=== PATIENT | female | born 1965 | race Caucasian/White ===

== ENCOUNTER 2016-07-27 08:42 | Emergency (ER) | payer BC ==
[2016-07-27 08:56] VITALS: BP 121/83
--- NOTE | 2016-07-27 09:55 | UC ---
FLU HPI - HPI Summary HPI Summary: The patient comes in today for: 1. Sore throat, pain behind the eyes, and "achey" all over: Onset: 4 days ago. Palliative/provocative: Nothing makes her symptoms better or worse. Quality: Pressure of the posterior pharynx. Region: Pharynx. Severity: 0/10 Time: Constant. Associated symptoms: Fevers: None. Rhinitis: None. Cough: None. Flu vaccine: None. * - History of Current Complaint Chief Complaint: UCRespiratory Stated Complaint: SORE THROAT Hx Obtained From: Patient Hx Last Menstrual Period: 8 years ago. ?: No - Allergy/Home Medications Allergies/Adverse Reactions: Allergies Allergy/AdvReac Type Severity Reaction Status Date / Time No Known Allergies Allergy Verified 07/27/16 08:51 Home Medications: Home Medications [id number] [Daytime/Nite Time Cold/Fl] 1 javier PO BID PRN 04/02 [History Confirmed 07/27/16] PMH/Surg Hx/FS Hx/Imm Hx Previously Healthy: Yes Endocrine History Of: Denies: Diabetes, Thyroid Disease, Hyperthyroidism, Hypothyroidism, Dyslipidemia Cardiovascular History Of: Denies: Cardiac Disorders, Hypertension, Pacemaker/ICD, Myocardial Infarction , Congestive Heart Failure, Atrial Fibrillation, Deep Vein Thrombosis, Bleeding Disorders Respiratory History Of: Denies: COPD, Asthma, Bronchitis, Pneumonia, Pulmonary Embolism GI/ History Of: Denies: Gastroesophageal Reflux, Ulcer, Gastrointestinal Bleed, Gall Bladder Disease, Kidney Stones, Diverticulitis, Renal Disease, Urosepsis Neurological History Of: Denies: TIA, CVA, Dementia, Seizures, Migraine Psychological History Of: Denies: Anxiety, Depression, Bipolar Disorder, Schizophrenia, Post Traumatic Stress Disorder Cancer History Of: Denies: Lung Cancer, Colorectal Cancer, Breast Cancer, Prostate Cancer, Cervical Cancer Other History Of: Negative For: HIV, Hepatitis B, Hepatitis C, Anticoagulant Therapy - Surgical History Surgical History: Yes Surgery Procedure, Year, and Place: ablation. L kidney donation- 2014 - Family History Known Family History: Positive: Cardiac Disease Negative: Hypertension, Diabetes - Social History Occupation: Employed Full-time Alcohol Use: Occasionally Substance Use Type: None Smoking Status (MU): Former Smoker When Did the Patient Quit Smoking/Using Tobacco: 25 years ago - Immunization History Most Recent Influenza Vaccination: not this season Review of Systems Constitutional: Negative Skin: Negative Eyes: Negative ENT: Sore Throat Respiratory: Cough Cardiovascular: Negative Gastrointestinal: Negative Genitourinary: Negative All Other Systems Reviewed And Are Negative: Yes Physical Exam Triage Information Reviewed: Yes Appearance: Well-Appearing, No Pain Distress, Well-Nourished Vital Signs: Initial Vital Signs Temp 98.8 F 07/27/16 08:51 Pulse 72 07/27/16 08:51 Resp 14 07/27/16 08:51 BP 121/83 07/27/16 08:51 Pulse Ox 99 07/27/16 08:51 Vital Signs Reviewed: Yes Eyes: Positive: Conjunctiva Clear. Negative: Discharge ENT: Positive: Hearing grossly normal, Pharynx normal. Negative: Pharyngeal erythema, Nasal congestion, Nasal drainage, TM bulging, TM dull, TM red, Tonsillar swelling, Tonsillar exudate Dental: Negative: Gross Decay/Caries @, Dental Fracture @ Neck: Positive: Supple, Nontender, No Lymphadenopathy. Negative: Nuchal Rigidity Respiratory: Positive: Lungs clear, No respiratory distress, No accessory muscle use. Negative: Crackles, Wheezing Cardiovascular: Positive: RRR, No Murmur Abdomen Description: Positive: Nontender, No Organomegaly, Soft. Negative: Distended, Guarding Musculoskeletal: Positive: Strength Intact, ROM Intact Neurological: Positive: Alert Psychological: Positive: Age Appropriate Behavior, Consolable Skin: Negative: rashes, breakdown Flu Course/Dx - Differential Dx/Diagnosis Differential Diagnosis/HQI/PQRI: Influenza Provider Diagnoses: Influenza A Discharge - Discharge Plan Condition: Stable Disposition: HOME Patient Education Materials: Influenza (ED) Forms: *Work Release Referrals: Non Staff,Doctor [Primary Care Provider] - 1 Week (Please see your primary care provider in about a week. If you don't have a primary care provider, please reference the included sheet of local provider. If you get worse, please be seen sooner.)
== END 2016-07-27 10:10 | disposition home or self-care (01) ==
LOC: UCCORT 08:42
DX: J09.X2 Influenza due to identified novel influenza A virus with other respiratory manifestations (principal); Z90.5 Acquired absence of kidney; Z87.891 Personal history of nicotine dependence
CPT/HCPCS: 87502; 99211; G0463

== ENCOUNTER 2017-06-29 11:25 | Emergency (ER) | payer BC ==
[2017-06-29 12:53] VITALS: BP 120/84
--- NOTE | 2017-06-29 13:01 | UC ---
Respiratory Complaint HPI - HPI Summary HPI Summary: Patient treated for bronchitis and sinus congestion for the past three weeks without improvement. - History of Current Complaint Chief Complaint: UCRespiratory Stated Complaint: COUGH Time Seen by Provider: 06/29/17 12:56 Hx Obtained From: Patient Hx Last Menstrual Period: 8 years ago. ?: No Onset/Duration: Sudden Onset, Lasting Weeks Timing: Constant Severity Initially: Mild Severity Currently: Moderate Character: Cough: Nonproductive Aggravating Factors: Exertion, Deep Breaths, Recumbent Position Alleviating Factors: Nothing Associated Signs And Symptoms: Positive: Dyspnea, Wheezing, URI, Nasal Congestion, Sinus Discomfort - Allergies/Home Medications Allergies/Adverse Reactions: Allergies Allergy/AdvReac Type Severity Reaction Status Date / Time No Known Allergies Allergy Verified 06/29/17 12:53 PMH/Surg Hx/FS Hx/Imm Hx Previously Healthy: Yes Other History Of: Negative For: HIV, Hepatitis B, Hepatitis C, Anticoagulant Therapy - Surgical History Surgical History: Yes Surgery Procedure, Year, and Place: ablation. L kidney donation- 2014 - Family History Known Family History: Positive: Cardiac Disease Negative: Hypertension, Diabetes - Social History Alcohol Use: Occasionally Substance Use Type: None Smoking Status (MU): Former Smoker When Did the Patient Quit Smoking/Using Tobacco: 25 years ago - Immunization History Most Recent Influenza Vaccination: not this season Review of Systems Constitutional: Negative Skin: Negative Eyes: Negative ENT: Sore Throat, Ear Ache, Nasal Discharge Respiratory: Shortness Of Breath, Cough Cardiovascular: Negative Gastrointestinal: Negative Genitourinary: Negative Motor: Negative Neurovascular: Negative Musculoskeletal: Negative Neurological: Headache Psychological: Negative Is Patient Immunocompromised?: No All Other Systems Reviewed And Are Negative: Yes Physical Exam Triage Information Reviewed: Yes Appearance: Well-Nourished, Ill-Appearing, Pain Distress Vital Signs: Initial Vital Signs Pulse 64 06/29/17 12:42 Resp 16 06/29/17 12:42 BP 120/84 06/29/17 12:42 Pulse Ox 98 06/29/17 12:42 Vital Signs Reviewed: Yes Eye Exam: Normal ENT: Positive: Nasal congestion, Nasal drainage, TM bulging Dental Exam: Normal Neck exam: Normal Neck: Positive: Supple, Nontender, No Lymphadenopathy Respiratory: Positive: No respiratory distress, Decreased breath sounds - in right lower lobe, Wheezing Cardiovascular Exam: Normal Cardiovascular: Positive: RRR, No Murmur, Pulses Normal Abdominal Exam: Normal Abdomen Description: Positive: Nontender, No Organomegaly, Soft Bowel Sounds: Positive: Present Musculoskeletal Exam: Normal Neurological Exam: Normal Psychological Exam: Normal Skin Exam: Normal UC Diagnostic Evaluation - Laboratory O2 Sat by Pulse Oximetry: 98 Respiratory Course/Dx - Course Course Of Treatment: hx obtained, exam performed ,meds reviewed, chest xray obtained, - Differential Dx/Diagnosis Differential Diagnosis/HQI/PQRI: Asthma, Bronchitis, Influenza, Lower Resp Infection, Sinusitis Provider Diagnoses: bronchitis Discharge - Discharge Plan Condition: Stable Disposition: HOME Prescriptions: Albuterol HFA INHALER* [Ventolin HFA Inhaler*] 2 puff INH Q4H PRN #1 mdi PRN Reason: Cough DOXYcycline CAP(*) [DOXYcycline 100MG CAP(*)] 100 mg PO BID #14 cap predniSONE TAB* [Deltasone TAB*] 40 mg PO DAILY #14 tab Patient Education Materials: Acute Bronchitis (ED) Referrals: Jyoti Honeycutt MD [Primary Care Provider] - Additional Instructions: 1. take the medication as prescribed. 2. Warm liquids, humdification, and rest, increase fluid intake 3. follow up if not improving.
--- NOTE | 2017-06-29 13:37 | RAD ---
Indication: Shortness of breath, cough. 2 views of the chest including dual energy PA views demonstrates no mediastinal shift. Heart is of normal size and configuration. Lung verduzco are clear. IMPRESSION: No active cardiopulmonary disease is noted.
== END 2017-06-29 14:05 | disposition home or self-care (01) ==
LOC: UCCORT 11:25
DX: J40 Bronchitis, not specified as acute or chronic (principal); Z87.891 Personal history of nicotine dependence
CPT/HCPCS: 71046; 99212; G0463

== ENCOUNTER 2019-04-23 10:39 | Emergency (ER) | payer BC ==
[2019-04-23 12:05] VITALS: BP 136/91
--- NOTE | 2019-04-23 13:39 | UC ---
Back Pain HPI - HPI Summary HPI Summary: 53 yo female with right flank pain x 6 days no UTI symptoms no hematuria she only has one kidney (right) renal function normal per pt - History of Current Complaint Chief Complaint: UCBackPain Stated Complaint: BACK R SIDE KIDNEY PAIN Time Seen by Provider: 04/23/19 12:23 Hx Obtained From: Patient Hx Last Menstrual Period: 8 years ago. Onset/Duration: Gradual Onset Timing: Constant Severity Initially: Mild Severity Currently: Mild Pain Intensity: 4 Pain Scale Used: 0-10 Numeric Back Pain: Is Discrete @ Character: Dull, Aching Aggravating Factor(s): Bending - ? Alleviating Factor(s): Rest, OTC Meds Associated Signs And Symptoms: Positive: Negative Full Body (No Head): 1 - pain - Allergies/Home Medications Allergies/Adverse Reactions: Allergies Allergy/AdvReac Type Severity Reaction Status Date / Time No Known Allergies Allergy Verified 04/23/19 11:55 Home Medications: Home Medications Naproxen Sodium [Aleve] 220 mg PO PRN 04/23/19 [History] PMH/Surg Hx/FS Hx/Imm Hx Previously Healthy: Yes Other History Of: Negative For: HIV, Hepatitis B, Hepatitis C, Anticoagulant Therapy - Surgical History Surgical History: Yes Surgery Procedure, Year, and Place: ablation-[facility]. L kidney donation- 2014. BILATERAL HERNIA REPAIR MAY 2018 - Family History Known Family History: Positive: Cardiac Disease Negative: Hypertension, Diabetes - Social History Alcohol Use: Occasionally Substance Use Type: None Smoking Status (MU): Former Smoker When Did the Patient Quit Smoking/Using Tobacco: 25 years ago - Immunization History Most Recent Influenza Vaccination: not this season Review of Systems All Other Systems Reviewed And Are Negative: Yes Constitutional: Positive: Negative Skin: Positive: Negative Eyes: Positive: Negative ENT: Positive: Negative Respiratory: Positive: Negative Cardiovascular: Positive: Negative Gastrointestinal: Positive: Negative Genitourinary: Positive: Negative Motor: Positive: Negative Neurovascular: Positive: Negative Musculoskeletal: Positive: Negative Neurological: Positive: Negative Psychological: Positive: Negative Physical Exam Triage Information Reviewed: Yes Appearance: Well-Appearing, No Pain Distress, Well-Nourished Vital Signs: Initial Vital Signs Temp 97.9 F 04/23/19 11:57 Pulse 65 04/23/19 11:57 Resp 18 04/23/19 11:57 BP 136/91 04/23/19 11:57 Pulse Ox 100 04/23/19 11:57 Vital Signs Reviewed: Yes Eyes: Positive: Conjunctiva Clear ENT: Positive: Hearing grossly normal, Uvula midline. Negative: Nasal congestion, Nasal drainage, Tonsillar swelling, Tonsillar exudate, Hoarse voice Neck: Positive: Supple, Nontender, No Lymphadenopathy Respiratory: Positive: Lungs clear, Normal breath sounds, No respiratory distress, No accessory muscle use Cardiovascular: Positive: RRR, No Murmur Abdomen Description: Positive: Nontender. Negative: CVA Tenderness (R), CVA Tenderness (L) Bowel Sounds: Positive: Present Musculoskeletal: Positive: ROM Intact, No Edema Neurological: Positive: Alert Psychological Exam: Normal Skin Exam: Normal Diagnostics - Laboratory Lab Results: UA (-) - Radiology No standard instances Radiology Interpretation Completed By: Radiologist Summary of Radiographic Findings: normal right kidney Back Pain Course/Dx - Differential Dx/Diagnosis Provider Diagnosis: Back pain Discharge ED - Sign-Out/Discharge Documenting (check all that apply): Patient Departure All imaging exams completed and their final reports reviewed: No Studies - Discharge Plan Condition: Stable Disposition: HOME Prescriptions: Cyclobenzaprine (NF) [Cyclobenzaprine 5 MG (NF)] 5 mg PO TID PRN #12 tab PRN Reason: Pain - Moderate Patient Education Materials: Back Pain (ED) Referrals: Jyoti Honeycutt MD [Primary Care Provider] - 1 Week (if not better ) Additional Instructions: tylenol for pain - Billing Disposition and Condition Condition: STABLE Disposition: Home
== END 2019-04-23 13:45 | disposition home or self-care (01) ==
LOC: UCCORT 10:39
DX: M54.89 Other dorsalgia (principal); Z87.891 Personal history of nicotine dependence
CPT/HCPCS: 76775; 81003; 99212; G0463

== ENCOUNTER 2019-08-15 20:32 | Emergency (ER) | payer BC ==
[2019-08-15 20:47] VITALS: BP 139/73
--- NOTE | 2019-08-15 20:50 | UC ---
Respiratory Complaint HPI - HPI Summary HPI Summary: Congestion, cough, pain in chest when she coughs. feels nauseous, eye watery, body aches all over and chills. All started today. - History of Current Complaint Chief Complaint: UCGeneralIllness Stated Complaint: CONGESTION/COUGH/CHILLS Time Seen by Provider: 08/15/19 20:41 Hx Obtained From: Patient Hx Last Menstrual Period: 8 years ago. Pain Intensity: 0 Character: Cough: Nonproductive Associated Signs And Symptoms: Positive: URI. Negative: Chills - Allergies/Home Medications Allergies/Adverse Reactions: Allergies Allergy/AdvReac Type Severity Reaction Status Date / Time No Known Allergies Allergy Verified 08/15/19 20:46 Home Medications: Home Medications Acetaminophen [Tylenol] 325 mg PO ONCE PRN 08/15/19 [History Confirmed 08/15/19] Cholecalciferol TAB* [Vitamin D TAB*] 400 unit PO DAILY 08/15/19 [History Confirmed 08/15/19] PMH/Surg Hx/FS Hx/Imm Hx - Additional Past Medical History Additional PMH: no chronic issues Previously Healthy: Yes Other History Of: Negative For: HIV, Hepatitis B, Hepatitis C, Anticoagulant Therapy - Surgical History Surgical History: Yes Surgery Procedure, Year, and Place: ablation-[facility]. L kidney donation- 2014. BILATERAL HERNIA REPAIR MAY 2018 - Family History Known Family History: Positive: Cardiac Disease Negative: Hypertension, Diabetes - Social History Alcohol Use: Occasionally Substance Use Type: None Smoking Status (MU): Former Smoker When Did the Patient Quit Smoking/Using Tobacco: 25 years ago - Immunization History Most Recent Influenza Vaccination: not this season Review of Systems All Other Systems Reviewed And Are Negative: Yes Constitutional: Positive: Chills, Fatigue. Negative: Fever Eyes: Positive: Other - watery eyes ENT: Positive: Sinus Congestion Respiratory: Positive: Cough Musculoskeletal: Positive: Myalgia Neurological/Mental Status: Negative: Headache Physical Exam Triage Information Reviewed: Yes Appearance: Well-Appearing Vital Signs: Initial Vital Signs Temp 99.5 F 08/15/19 20:42 Pulse 85 08/15/19 20:42 Resp 18 08/15/19 20:42 BP 139/73 08/15/19 20:42 Pulse Ox 99 08/15/19 20:42 Vital Signs Reviewed: Yes Eyes: Positive: Conjunctiva Clear ENT: Positive: Pharynx normal, TMs normal, Uvula midline Neck: Positive: Supple, Nontender, No Lymphadenopathy Respiratory Exam: Normal Cardiovascular Exam: Normal Neurological: Positive: Alert Skin: Negative: Rashes Respiratory Course/Dx - Course Course Of Treatment: Viral etiology in a pt. w/ cough, body aches, pleuritic cp. rapid flu neg. disc ways to manage symptoms. vitals good. lungs clear. - Differential Dx/Diagnosis Differential Diagnosis/HQI/PQRI: Bronchitis, Influenza, Sinusitis, Other Provider Diagnosis: Viral syndrome Discharge ED - Sign-Out/Discharge Documenting (check all that apply): Patient Departure All imaging exams completed and their final reports reviewed: No Studies - Discharge Plan Condition: Good Disposition: HOME Patient Education Materials: Viral Syndrome (ED) Referrals: Peng Fraser MD [Primary Care Provider] - Additional Instructions: If worsening please go to emergency room - Billing Disposition and Condition Condition: GOOD Disposition: Home - Attestation Statements Provider Attestation: I was available for consult. This patient was seen by the CANDE. The patient was not presented to , seen by or examined by wi -Rickey Arciniega MD
[2019-08-15 21:11] LABS: Influenza A Molecular Negative (Negative); Influenza B Molecular Negative (Negative)
== END 2019-08-15 21:21 | disposition home or self-care (01) ==
LOC: UCCORT 20:32
DX: B34.9 Viral infection, unspecified (principal); R53.83 Other fatigue; R68.83 Chills (without fever); R09.89 Other specified symptoms and signs involving the circulatory and respiratory systems; M79.10 Myalgia, unspecified site; R05 Cough; Z87.891 Personal history of nicotine dependence
CPT/HCPCS: 99211; G0463